=== PATIENT | male | born 2005 | race Caucasian/White ===

== ENCOUNTER 2025-03-29 17:57 | Emergency (ER) | payer OTHER, SELFPAY ==
[2025-03-29 17:59] VITALS: BP 138/68; PULSE 81; RESP 16; TEMP 36.6; O2SAT 96; BMI 25.9
--- NOTE | 2025-03-29 18:15 | EX.ED.UPPERE ---
HPI History of Present Illness HPI Narrative: 20-year-old male no CeeNU past medical history. [id number]. Playing a soccer game against our local college. He is from out of state in [place]. He fell injuring his right shoulder complaining of right shoulder pain. Denies any head injury or LOC no neck pain. No other complaints. No prior right arm or shoulder issues or surgeries. Chief Complaint: Upper Extremity Injury Informant: patient Occured/Mechanism Mechanism/Context: Yes injury and Yes blunt trauma Onset/Context/Timing Onset: Today Context: Sudden Onset Timing: Continuous Quality of Pain: Sharp Current Severity: Moderate Maximum Severity: Moderate Associated Symptoms Associated Symptoms: Negative for Parasthesia, Weakness or Loss of Funtion Narrative Narrative: 20-year-old male college [employer] injured his right shoulder today in a game. [id number]. No other complaints. Prior similar symptoms: No Recent Illness/Hospitalization: No PFSH PFSH Medical History no medical history no medical history Home Medications ?Medication ?Instructions ?Recorded ?Last Taken ?Type NK 03/29/25 Unknown History Allergy/AdvReac Type Severity Reaction Status Date / Time codeine Allergy Rash Verified 03/29/25 18:02 Social History Smoking Status: Never smoker ROS ROS ED ROS Narrative Denies recent illness. Constitutional Constitutional ED: Denies chills or fever(s) Eyes Eyes: Denies blurry vision ENT ENT ED: Denies ear pain Cardiovascular Cardiovascular: Denies chest pain Respiratory/Chest Respiratory/Chest: Denies cough or dyspnea Gastrointestinal Gastrointestinal: Denies abdominal pain Genitourinary Genitourinary ED: Denies dysuria or hematuria Musculoskeletal Musculoskeletal: Denies back pain Integumentary Denies abscess Neurologic Neurologic: Denies headache(s) Psychiatric Psychiatric: Denies anxiety Endocrine Endocrinology: Denies cold intolerance Hematologic/Lymphatic Hematologic/Lymphatic: Denies easy bleeding, easy bruising or lymphadenopathy Allergic/Immunologic Allergic/Immunologic ED: Denies mouth swelling, tongue swelling or urticaria EXAM Physical Exam Narrative Exam Narrative: 20-year-old male sitting upright in bed vital signs stable afebrile. He has his right arm resting on blankets. No acute distress. Is brought in by squad. Treated previously with fentanyl. Said his pain is under control. Is another young male accompanying him. H EENT exam pupils round react light. No signs of trauma to his face or scalp nontender no bruising. No hematomas. C-spine and neck nontender. Back nontender. Lungs clear to auscultation bilaterally. Heart regular rhythm no murmur. Rate about 80. Chest wall ribs nontender. Abdomen soft nontender. Pelvic girdle intact. Left upper both lower extremities nontender normal range of motion. Normal strength and sensation. Right shoulder tenderness on the posterior aspect. Distal humerus, elbow, forearm, wrist and hand nontender no deformity. Normal polls or surveys interviewer strength 5-5. Radial pulse. Normal sensation. Neurologically is awake alert. Answer question following commands. GCS of 15. Const Vital Signs: 03/29/25 17:59 Temperature 97.9 F Temperature Source Oral Pulse Rate 81 Respiratory Rate 16 Blood Pressure 138/68 H Blood Pressure Mean 91 Pulse Ox 96 Oxygen Delivery Method Room Air Positive well nourished and well developed; Negative for obese, cachectic, contractures or unkempt General Appearance ED: well developed and NAD; Negative for unkempt, cachectic, contractures, cyanotic or diaphoretic Nutritional Appearance: Negative for cachectic or obese HEENT Reports moist mucous membranes normocephalic and atraumatic; Negative for trauma or tenderness Eyes PERRL and EOMs intact bilaterally Neck full ROM and supple Chest Wall inspection of chest normal and palpation of chest normal Resp normal respiratory effort and clear to auscultation bilaterally Cardio regular rate, regular rhythm, S1 normal heart sound, S2 normal heart sound and no murmurs GI non-tender, non-distended and no masses Auscultation: normoactive bowel sounds Palpation: soft; Negative for tender or guarding Back/Spine no CVA tenderness General Back: Negative for CVA tenderness Cervical Spine: Negative for cervical spine tenderness Thoracic Spine / Upper Back: Negative for thoracic spinal tenderness Lumbar Spine / Lower Back: Negative for lumbar spinal tenderness Extremity normal to inspection and full ROM Extremity Narrative: Except right shoulder. Tenderness posteriorly. No deformity. Does not want to do range of motion due to pain. Distal humerus, elbow, forearm, wrist and hand are nontender. Normal radial pulse. Normal polls or surveys interviewer strength and sensation. No deformity. General Extremety ED: Negative for edema General Extremity: Negative for edema Neuro oriented x3, CN's II-XII intact bilaterally, moves all extremities, no focal motor deficits and no sensory deficits noted Sensorium / Orientation: alert, oriented to person, oriented to place and oriented to time Motor Exam: strength 5/5 throughout Psych mental status grossly normal Appearance: Negative for unkempt Skin Lesions: no lesions Rashes: no rashes Trauma: no lacerations or abrasions MDM MDM MDM Narrative Medical decision making narrative: 20-year-old male injured his right shoulder in a soccer game. X-ray being obtained. He was already given pain meds prior to arrival and said he is good at this time. Repeat exam patient doing well at 6:45 PM. I instructed him of his right shoulder x-ray and he will be for surgically sedated he has not eaten since 1 PM. And will reduce the shoulder and put him in a sling and discharged him home. Repeat exam around 7:33 PM patient is awake alert. He is doing well. He has been placed in a sling to putting on the swath. He will be discharged with his team after observation post procedural sedation. The x-ray showed a good reduction. They know to follow-up with orthopedics in [place] where he goes to college for further evaluation and before he get cleared to play sports again. Motrin and Tylenol for pain. History & Record Review Discussion w/independent historian: Patient Additional record(s) reviewed:: No prior records Radiography Diagnostic Testing: Right shoulder x-ray, 3 views, interpreted by myself shows dislocated right shoulder. Right shoulder x-ray 2 views postreduction shows shoulder now aligned in appropriate position. No fracture. Interpreted by myself. Procedures Procedural Sedation Right shoulder dislocation reduction: Consent Signed: Yes Any Problems With Anesthesia: No You/Your family experience fever (hyperthermia) w/anesthesia: No Sedation medication: Propofol Dose: 60 Route: IV Total Moderate Sedation Units: 15 Maliampati Score: Class I ASA Classification: I Comment:: Right shoulder dislocation. Procedural sedation for reduction. Patient was set up on the monitoring. O2. His last meal was before 1 PM its currently 7 PM. He was initially given 60 of propofol was still awake and alert was given 40 more. And the shoulder was easily reduced on the first attempt. He is being placed in a sling. Postreduction x-ray being obtained. He is awake currently. Procedural sedation time was around 15 minutes. Discharge Plan Triage Chief Complaint: Upper Extremity Injury ED Provider: Adrian Rose Dx/Rx/DC Orders Clinical Impression: Dislocation of shoulder, right, closed Instructions: ED Dislocation: Shoulder (Reduced) Primary Care Provider: HALEY CORTEZ Referrals: HALEY CORTEZ [Other] Jose Gresham DO [Med Staff - Active Staff] - As soon as possible Activity Restrictions/Additional Instructions: Your right shoulder was dislocated it is now reduced. Ice to the area. Motrin and Tylenol for pain. Follow-up with an orthopedic physician to have it reevaluated. Leave the sling on is much as possible. You can take it off to bathe or shower. You can take it off to sleep. Be careful not to do a lot of range of motion with your shoulder because it can read dislocate. No sports until cleared by your physicians. Print Language: Marshallese Disposition Disposition: Home, Self Care
--- NOTE | 2025-03-29 18:20 | RAD_ITS ---
PROCEDURE: SHOULDER MIN 2 VIEWS 03/29/2025 REASON FOR EXAM: INJURY TECHNIQUE: Procedure Code: RADSH Modality: DX Procedure: SHOULDER MIN 2 VIEWS Laterality: Right COMPARISON: None FINDINGS: Bones: No fracture Joints: Anterior shoulder dislocation Soft tissues: Soft tissues are unremarkable. Other: No foreign body RAD/Shoulder min 2 Views IMPRESSION: Anterior shoulder dislocation. No fracture seen. Reading Location: [id number]
[2025-03-29 19:00] VITALS: BP 130/78; PULSE 60; RESP 16; TEMP 36.8; O2SAT 100
[2025-03-29 19:16] VITALS: BP 132/70; PULSE 65; RESP 15; O2SAT 100
--- NOTE | 2025-03-29 19:20 | RAD_ITS ---
PROCEDURE: SHOULDER MIN 2 VIEWS 03/29/2025 REASON FOR EXAM: POST REDUCTION TECHNIQUE: Procedure Code: RADSH Modality: DX Procedure: SHOULDER MIN 2 VIEWS Laterality: Right COMPARISON: Earlier the same day FINDINGS: Bones: No fracture status post reduction. Joints: Normal alignment. Soft tissues: Soft tissues are unremarkable. RAD/Shoulder min 2 Views IMPRESSION: Unremarkable status post reduction. Reading Location: [id number]
[2025-03-29 19:21] VITALS: BP 130/87; PULSE 60; RESP 16; O2SAT 100
[2025-03-29 19:26] VITALS: BP 136/73; PULSE 60; RESP 16; O2SAT 99
[2025-03-29 19:36] VITALS: BP 117/79; PULSE 61; RESP 16; TEMP 36.5; O2SAT 100
== END 2025-03-29 19:46 | disposition home or self-care (01) ==
PROVIDERS: Emergency Provider Emergency Medicine; Visit Provider Emergency Medicine
DX: S43.004A Unspecified dislocation of right shoulder joint, initial encounter (principal); W19.XXXA Unspecified fall, initial encounter; Y93.66 Activity, soccer
CPT/HCPCS: 73030; 96374; 99284; A4216